=== PATIENT | male | born 1990 | race Caucasian/White ===

== ENCOUNTER → 2021-09-05 14:49 | Outpatient (BNVA) | payer MEDICAID, SELFPAY | PROVIDERS: PCP Registered Nurse Community Health; Referring Provider Registered Nurse Community Health; Visit Provider Surgery | DX: D17.9 Benign lipomatous neoplasm, unspecified (principal) | CPT/HCPCS: 99202 ==

== ENCOUNTER 2021-11-16 09:57 | Outpatient (REF) | payer MEDICAID, SELFPAY ==
[2021-11-16 10:05] VITALS: BP 127/86; PULSE 64; RESP 16; TEMP 36.6; O2SAT 98
[2021-11-16 10:06] VITALS: BMI 30.7
[2021-11-16 10:57] VITALS: BP 144/67; PULSE 65; RESP 16; O2SAT 98
--- NOTE | 2021-11-16 10:58 | P.OP_ITS ---
Operative Note Operative Note Date of Service: 11/16/21 Narrative: Preoperative diagnosis: Lipoma left back Postoperative diagnosis: Same Procedure: Excision of lipoma left back Surgeon: Wilmar Sawyer MD Credit Report Checker: None Anesthesia: Local Indications for procedure: 31-year-old male with a large lipoma measuring approximately 10 cm in diameter located in the left mid back below the scapula Operative findings: 10 cm lipoma located submuscular Specimen: Lipoma left back Estimated blood loss: 10 mL Complications: None Procedure details: Patient was brought to the minor surgery suite and placed in a prone position. After assuring informed consent and confirming the site of surgery in the left mid back the skin was prepped with Betadine and draped in sterile fashion. Local anesthesia consisting of 1% lidocaine with epinephrine was infiltrated in a transverse fashion directly over the lipoma. Incision was then made with a 15 blade and carried out through subcutaneous tissue past superficial muscular deep muscular layers up to the chest wall. Lipoma was noted submuscular and dissected free using combination of blunt and sharp dissection. A 10 cm lipoma was identified and sent to pathology for further examination. Hemostasis was assured using light pressure. Muscular layers were then reapproximated using interrupted 3-0 Polysorb sutures. Dermis was reapproximated using interrupted 3-0 Polysorb sutures. Skin was closed using a running subcuticular 4-0 Polysorb suture. Sterile dressings consisting of Steri-Strips 2 x 2 gauze and Tegaderm were then applied. The patient tolerated the procedure well. He was discharged to home in stable condition.
== END 2021-11-16 09:58 | disposition home or self-care (01) ==
LOC: HO.MS 09:57
PROVIDERS: Visit Provider Surgery
PROC: (CPT 21933; principal; 2021-11-16 10:00)
DX: D17.1 Benign lipomatous neoplasm of skin and subcutaneous tissue of trunk (principal)
CPT/HCPCS: 21933; 88304

== ENCOUNTER → 2021-11-24 13:32 | Outpatient (BNVA) | payer MEDICAID, SELFPAY | PROVIDERS: Visit Provider Surgery | DX: Z48.817 Encounter for surgical aftercare following surgery on the skin and subcutaneous tissue (principal); Z87.2 Personal history of diseases of the skin and subcutaneous tissue | CPT/HCPCS: 99212 ==